=== PATIENT | female | born 1985 | race Caucasian/White ===

== ENCOUNTER 2017-04-30 03:07 | Emergency (ER) | payer SELFPAY ==
[~2017-04-30] VITALS: Ht 167.6 cm; Wt 54.4 kg
--- OUTSIDE RECORDS SUMMARY | 2017-04-30 03:13 | XMS REPORT | Referral Summary ---
Author Author [facility] Organization [facility] Address Unknown Phone Unavailable Care Team Providers Care Broodmare Foreman Name Role Phone No PCP, Pt States PCP Encounter VC Date(s): 01/11/16 - 01/11/16 [facility] [address] [place], [place] [address] Discharge Diagnosis: Bacterial vaginosis Discharge Diagnosis: Acute UTI Discharge Disposition: 01-Home or Self Care Attending Physician: Ja Aguirre MD Admitting Physician: Ja Aguirre MD Vital Signs Most recent to 1 oldest [Reference Range]: Temperature Oral 36.8 degC [35.8-37.3 degC] (01/11/16 9:29 PM) Peripheral Pulse 107 bpm Rate [60-100 bpm] *HI* (01/11/16 9:29 PM) Respiratory Rate 16 br/min [14-20 br/min] (01/11/16 9:29 PM) Blood Pressure 140/99 mmHg [90-140/60-90 mmHg] (01/11/16 9:29 PM) SpO2 98 % (01/11/16 9:29 PM) Problem List No Known Problems Allergies, Adverse Reactions, Alerts Substance Reaction Severity Status penicillin Anaphylaxis Severe Active Medications ciprofloxacin 500 mg oral tablet 500 mg 1 tabs, Oral, BID, for infection, X 7 days, # 14 tabs, 0 Refill(s) Start Date: 01/11/16 Stop Date: 01/18/16 Status: Ordered Flagyl 500 mg oral tablet 500 mg 1 tabs, Oral, q12hr, X 7 days, # 14 tabs, 0 Refill(s) Start Date: 01/11/16 Stop Date: 01/18/16 Status: Ordered Implanon mg, SubCutaneous, Once, 0 Refill(s) Start Date: 01/11/16 Status: Ordered Motrin IB mg, Oral, 0 Refill(s) Start Date: 01/11/16 Status: Ordered Pepto-Bismol QID, 0 Refill(s) Start Date: 01/11/16 Status: Ordered Results Chemistry Most recent to 1 oldest [Reference Range]: Screen, Negative Urine NPT (01/11/16 11:04 PM) Urinalysis Most recent to 1 oldest [Reference Range]: UA Color Yellow (01/11/16 10:48 PM) UA Appear Cloudy *ABN* (01/11/16 10:48 PM) UA pH [5.0-8.0] 5.0 (01/11/16 10:48 PM) UA Leuk Est Trace [Negative] *ABN* (01/11/16 10:48 PM) UA Nitrite Positive [Negative] *ABN* (01/11/16 10:48 PM) UA Protein Negative [Negative] (01/11/16 10:48 PM) UA Glucose Negative [Negative] (01/11/16 10:48 PM) UA Ketones Negative [Negative] (01/11/16 10:48 PM) UA Urobilinogen Negative [<1.0] (01/11/16 10:48 PM) UA Bili [Negative] Negative (01/11/16 10:48 PM) UA Blood [Negative] Negative (01/11/16 10:48 PM) UA Spec Grav 1.025 [1.003-1.030] (01/11/16 10:48 PM) Type Clean Catch (01/11/16 10:48 PM) UA WBC [0-4] 10-20 *ABN* (01/11/16 10:48 PM) UA RBC [0-2] 2-5 (01/11/16 10:48 PM) Epithelial Cells 10-20 (01/11/16 10:48 PM) UA Bacteria Rare (01/11/16 10:48 PM) UA Mucous Present (01/11/16 10:48 PM) Microbiology Reports TEST: Affirm Vaginitis Panel STATUS: Auth (Verified) BODY SITE: SOURCE: Cervix/Vaginal COLLECTED DATE/TIME: 01/11/16 10:48 PM Affirm Vaginitis Panel Negative for Trichomonas vaginalis Positive for Gardnerella vaginalis Negative for Alisson species Immunizations No data available for this section Procedures No data available for this section Social History Social History Type Response Smoking Status Current every day smoker; Type: Cigarettes; Tobacco use per day: Less than Pack Assessment and Plan No data available for this section
--- OUTSIDE RECORDS SUMMARY | 2017-04-30 03:13 | XMS REPORT | Referral Summary ---
Author Author [facility] Organization [facility] Address Unknown Phone Unavailable Care Team Providers Care Betting Agency Manager Name Role Phone No PCP, Pt States PCP Encounter VC Date(s): 04/02/16 - 04/02/16 [facility] [address] [place] [address]- Discharge Disposition: Left Against Medical Advice Vital Signs Most recent to 1 oldest [Reference Range]: Temperature Oral 36.7 degC [35.8-37.3 degC] (04/02/16 5:24 PM) Peripheral Pulse 105 bpm Rate [60-100 bpm] *HI* (04/02/16 5:24 PM) Respiratory Rate 16 br/min [14-20 br/min] (04/02/16 5:24 PM) Blood Pressure 137/95 mmHg [90-140/60-90 mmHg] (04/02/16 5:24 PM) SpO2 98 % (04/02/16 5:24 PM) Problem List No Known Problems Allergies, Adverse Reactions, Alerts Substance Reaction Severity Status penicillin Anaphylaxis Severe Active Medications Aleve mg, Oral, 0 Refill(s) Start Date: 04/02/16 Status: Ordered Excedrin tabs, Oral, q6hr, 0 Refill(s) Start Date: 04/02/16 Status: Ordered Implanon mg, SubCutaneous, Once, 0 Refill(s) Start Date: 01/11/16 Status: Ordered Motrin IB mg, Oral, 0 Refill(s) Start Date: 01/11/16 Status: Ordered Results Chemistry Most recent to 1 oldest [Reference Range]: Screen, Negative Urine NPT (04/02/16 5:52 PM) Urinalysis Most recent to 1 oldest [Reference Range]: UA Color Yellow (04/02/16 5:44 PM) UA Appear Sl Cloudy (04/02/16 5:44 PM) UA pH [5.0-8.0] 5.0 (04/02/16 5:44 PM) UA Leuk Est Negative [Negative] (04/02/16 5:44 PM) UA Nitrite Negative [Negative] (04/02/16 5:44 PM) UA Protein Negative [Negative] (04/02/16 5:44 PM) UA Glucose Negative [Negative] (04/02/16 5:44 PM) UA Ketones Negative [Negative] (04/02/16 5:44 PM) UA Urobilinogen Negative [<1.0] (04/02/16 5:44 PM) UA Bili [Negative] Negative (04/02/16 5:44 PM) UA Blood [Negative] Negative (04/02/16 5:44 PM) UA Spec Grav 1.020 [1.003-1.030] (04/02/16 5:44 PM) Type Clean Catch (04/02/16 5:44 PM) Immunizations No data available for this section Procedures No data available for this section Social History Social History Type Response Smoking Status Current every day smoker; Type: Cigarettes; Tobacco use per day: Less than Pack Assessment and Plan No data available for this section
--- OUTSIDE RECORDS SUMMARY | 2017-04-30 03:13 | XMS REPORT ---
Author Author Renee Alarcon [facility] Address [address] [place] [address] Care Team Providers Care Director Sales And Marketing Name Role Phone Renee Alarcon Unavailable PROBLEMS Type Condition ICD9-CM Code [id number] Code Onset Dates Condition Status SNOMED Code Problem CARE LEVEL 2 CARE2 Active Problem Atypical squamous cells of undetermined significance on cytologic smear of cervix (ASC-US) R87.610 Active 856110216 ALLERGIES Substance Reaction Event Type Date Status Penicillin Unknown Drug Allergy Oct, Active SOCIAL HISTORY No smoking Hx information available PLAN OF CARE Activity Details Follow Up 2 Weeks Reason:null VITAL SIGNS Temperature 97.5 degrees Fahrenheit 2016-11-27 Weight 120.9 lbs 2016-11-27 Height 65.5 in 2016-11-27 BMI 19.81 kg/m2 2016-11-27 Heart Rate 106 /min 2016-11-27 Blood pressure systolic 116 mm Hg 2016-11-27 Blood pressure diastolic 78 mm Hg 2016-11-27 MEDICATIONS Unknown Medications RESULTS Name Result Date Reference Range * TEST URINE 2016-11-27 UR TEST NEGATIVE NEGATIVE PROCEDURES Procedure Date Ordered Related Diagnosis Body Site Preg test, urine November 27, 2016 Office visit estab lev 3 November 27, 2016 IMMUNIZATIONS No Known Immunizations
--- OUTSIDE RECORDS SUMMARY | 2017-04-30 03:13 | XMS REPORT ---
Author Author Randi Katz [facility] Address [address] [place] [address] Care Team Providers Care Corporate Specialist Name Role Phone Randi Katz Unavailable PROBLEMS Type Condition ICD9-CM Code [id number] Code Onset Dates Condition Status SNOMED Code Problem CARE LEVEL 2 CARE2 Active 052696716 Problem Atypical squamous cells of undetermined significance on cytologic smear of cervix (ASC-US) R87.610 Active 090703043 Problem CHRISTINE I (cervical intraepithelial neoplasia I) N87.0 Active 166040480 ALLERGIES Substance Reaction Event Type Date Status Penicillin Unknown Drug Allergy Nov, Active SOCIAL HISTORY No smoking Hx information available PLAN OF CARE Activity Details Follow Up 1 Week Reason:null VITAL SIGNS Temperature 98.1 degrees Fahrenheit 2016-12-04 Weight 120.5 lbs 2016-12-04 Height 65.5 in 2016-12-04 BMI 19.75 kg/m2 2016-12-04 Heart Rate 110 /min 2016-12-04 Blood pressure systolic 122 mm Hg 2016-12-04 Blood pressure diastolic 78 mm Hg 2016-12-04 MEDICATIONS No Known Medications RESULTS Name Result Date Reference Range * WET MOUNT (WFM) WET MOUNT PROCEDURES Procedure Date Ordered Related Diagnosis Body Site Office visit estab [facility] 2 December 04, 2016 IMMUNIZATIONS No Known Immunizations
--- OUTSIDE RECORDS SUMMARY | 2017-04-30 03:13 | XMS REPORT ---
Author Author Randi Katz [facility] Address [address] [place] [address] Care Team Providers Care Bull Fiddle Player Name Role Phone Randi Katz Unavailable PROBLEMS Type Condition ICD9-CM Code [id number] Code Onset Dates Condition Status SNOMED Code Problem CARE LEVEL 2 CARE2 Active 784558535 Problem Atypical squamous cells of undetermined significance on cytologic smear of cervix (ASC-US) R87.610 Active 926984135 Problem CHRISTINE I (cervical intraepithelial neoplasia I) N87.0 Active 556545505 ALLERGIES Substance Reaction Event Type Date Status Penicillin Unknown Drug Allergy Nov, Active SOCIAL HISTORY No smoking Hx information available PLAN OF CARE Activity Details Follow Up 1 Year Reason:null VITAL SIGNS Temperature 97.6 degrees Fahrenheit 2016-12-11 Weight 123 lbs 2016-12-11 Height 65.5 in 2016-12-11 BMI 20.15 kg/m2 2016-12-11 Heart Rate 104 /min 2016-12-11 Blood pressure systolic 129 mm Hg 2016-12-11 Blood pressure diastolic 80 mm Hg 2016-12-11 MEDICATIONS No Known Medications RESULTS No Results PROCEDURES Procedure Date Ordered Related Diagnosis Body Site Office visit estab [facility] 2 December 11, 2016 IMMUNIZATIONS No Known Immunizations
[2017-04-30] MEDS ORDERED: CLIN300C11 PO (03:27)
[2017-04-30] MEDS ORDERED: NAPR500T4 PO (03:27)
[2017-04-30] MEDS ORDERED: LIDO15SO2 MM (03:27)
--- NOTE | 2017-04-30 03:27 | ED EENT ---
History of Present Illness General Chief Complaint: Dental Problems/Pain Stated Complaint: DENTAL PAIN Nursing Triage Note: PATIENT STATES THAT SHE HAS BEEN HAVING PAIN IN HER MOUTH WHERE HER WISDOM TEETH ARE COMING IN ON THE RIGHT SIDE FOR THE LAST ONE HOUR. SHE HAS SEEN A DENTIST IN [place] WHERE SHE LIVES AND KNOWS THAT SHE NEEDS HER WISDOM TEETH EXTRACTED. THIS IS NOT SCHEDULED. Source: patient History of Present Illness Time seen by provider: 03:18 Initial Comments C/O SEVERE DENTAL PAIN X 1 HOUR NO RELIEF WITH ALEVE X 1 HAS CHRONIC DENTAL PROBLEMS AND MULTIPLE TEETH ALWAYS HURT, BUT TONIGHT PAIN IS SEVERE AND IS WORST ON RIGHT UPPER AND LOWER MOLAR AREAS DOES NOT HAVE A DENTIST, AND NO APPOINTMENT HAS BEEN MADE TO SEE ONE. DENIES RECENT ANTIBIOTIC USE PT IS HERE FROM [place]--WILL BE GOING BACK THERE LATER TODAY Allergies and Home Medications Allergies Coded Allergies: Penicillins (Verified Allergy, Unknown, 04/30/17) Home Medications Clindamycin HCl 300 Mg Capsule, 300 MG PO QID, #40 Prescribed by: DEXTER GARDUNO on 04/30/17 0327 Lidocaine HCl 15 Ml Solution, 1-2 ML MM Q 1-2 HOURS, #100 Prescribed by: DEXTER GARDUNO on 04/30/17 0327 Naproxen 500 Mg Tablet, 500 MG PO BID, #20 Prescribed by: DEXTER GARDUNO on 04/30/17 0327 Review of Systems Constitutional: no symptoms reported, No fever Ears: No Symptoms Reported Nose: no symptoms reported Mouth: see HPI Throat: no symptoms reported Respiratory: no symptoms reported Cardiovascular: no symptoms reported Gastrointestinal: no symptoms reported : No LMP: Apr 01, 2017 ( NO CONTROL) Musculoskeletal: no symptoms reported Skin: no symptoms reported Neurological: No Symptoms Reported Past [id number] Hx Patient Social History Alcohol Use: Denies Use Recreational Drug Use: No (DENIES ) Smoking Status: Current Everyday Smoker (1/2 PPD) Type Used: Cigarettes Recent Foreign Travel: No Contact w/Someone Who Travel: No Recent Infectious Disease Expo: No Physical Abuse: No Sexual Abuse: No Surgeries History of Surgeries: No Respiratory History of Respiratory Disorde: No Cardiovascular History of Cardiac Disorders: No Neurological History of Neurological Disord: No Reproductive System : No Hx Reproductive Disorders: No Female Reproductive Disorders: Denies Genitourinary History of Genitourinary Disor: No Gastrointestinal History of Gastrointestinal Di: No Musculoskeletal History of Musculoskeletal Dis: No Endocrine History of Endocrine Disorders: No HEENT History of HEENT Disorders: Yes (CHRONIC DENTAL PROBLEMS) Cancer History of Cancer: No Psychosocial History of Psychiatric Problem: No Suicide Risk Score: 0 Integumentary History of Skin or Integumenta: No Blood Transfusions History of Blood Disorders: No Physical Exam Vital Signs Vital Sign - Last 12Hours 04/30/17 03:14 Temp 97.1 Pulse 96 Resp 20 B/P (MAP) 143/97 Pulse Ox 100 O2 Delivery Room Air General Appearance: WD/WN, no apparent distress Ears: bilateral ear auricle normal, bilateral ear canal normal, bilateral ear TM normal Nose: normal inspection Mouth/Throat: other (EXTENSIVE DENTAL DECAY WITH MULTIPLE TEETH DECAYED DOWN TO GUMS. MOST TENDER TO RIGHT UPPER AND LOWER SECOND MOLAR AREAS WITH SURROUNDING GUM INFLAMMATION/SWELLING/ERYTHEMA--WORST ON LOWER ASPECT. ) Neck: non-tender, full range of motion, supple, normal inspection, No lymphadenopathy (R), No lymphadenopathy (L) Cardiovascular: regular rate, rhythm, no murmur Respiratory: normal breath sounds, no respiratory distress, no accessory muscle use Neurologic/Psychiatric: informatics manager II-XII nml as tested, no motor/sensory deficits, alert, oriented x 3 Skin: normal color, warm/dry Progress/Results/Core Measures Results/Orders My Orders Orders - DEXTER GARDUNO DO Lidocaine 2% Viscous 15 Ml (Xylocaine Vi (04/30/17 03:30) Vital Signs/I&O Vital Sign - Last 12Hours 04/30/17 03:14 Temp 97.1 Pulse 96 Resp 20 B/P (MAP) 143/97 Pulse Ox 100 O2 Delivery Room Air Blood Pressure Mean: 112 Departure Impression Impression: Primary Impression: Dental caries Disposition: HOME, SELF-CARE Condition: Stable Departure-Patient Inst. Referrals: NO,LOCAL PHYSICIAN (PCP/Family) Primary Care Physician Patient Instructions: Tooth Decay, Adult (DC), Tooth Abscess (DC) Add. Discharge Instructions: FREQUENT SALT WATER SWISHES FOLLOW UP WITH DENTIST THIS WEEK--CALL TODAY FOR APPOINTMENT All discharge instructions reviewed with patient and/or family. Voiced understanding. Scripts Lidocaine HCl (Lidocaine HCl Viscous) 15 Ml Solution 1-2 ML MM Q 1-2 HOURS for Pain, #100 ML Prov: DEXTER GARDUNO DO 04/30/17 Naproxen (Naproxen) 500 Mg Tablet 500 MG PO BID, #20 TAB Prov: DEXTER GARDUNO DO 04/30/17 Clindamycin HCl (Clindamycin HCl) 300 Mg Capsule 300 MG PO QID for FOR INFECTION, #40 CAP Prov: DEXTER GARDUNO DO 04/30/17 DEXTER GARDUNO DO Apr 30, 2017 03:27
[2017-04-30] MEDS ORDERED: LIDOCAINE 2% VISCOUS 15 ML UDC MM ONE (03:30)
[2017-04-30 03:38] VITALS: BP 143/97
== END 2017-04-30 03:38 | disposition home or self-care (01) ==
LOC: ER 03:10
DX: K02.9 Dental caries, unspecified (principal); F17.210 Nicotine dependence, cigarettes, uncomplicated
CPT/HCPCS: 99282